=== PATIENT | female | born 1995 | race Caucasian/White ===

== ENCOUNTER → 2017-12-21 | Outpatient (REF) | payer OTHER | LOC: M LAB REF 08:30 | DX: N30.01 Acute cystitis with hematuria (principal) ==

== ENCOUNTER → 2018-04-04 | Outpatient (REF) | payer OTHER | LOC: M LAB REF 12:24 | DX: N30.01 Acute cystitis with hematuria (principal) ==

== ENCOUNTER → 2018-10-09 | Outpatient (REF) | payer OTHER | LOC: M LAB REF 12:31 | PROVIDERS: ATTEND Physician Assistant | DX: N39.0 Urinary tract infection, site not specified (principal) ==

== ENCOUNTER → 2019-01-11 | Outpatient (REF) | payer OTHER | LOC: M LAB REF 12:11 | PROVIDERS: ATTEND Physician Assistant | DX: R30.0 Dysuria (principal) ==

== ENCOUNTER → 2022-01-13 | Outpatient (CLI) | payer OTHER ==
[2022-01-13 09:54] LABS: BASO % 0.4 % (0.0-1.0); EOS # 0.1 10^3/uL (0.0-0.5); EOS % 1.7 % (0.0-3.0); HEMATOCRIT 42.2 % (36.0-47.0); HEMOGLOBIN 13.8 g/dl (12.0-15.5); LYMPH # 2.8 10^3/uL (1.5-5.0); LYMPH % 33.8 % (24.0-44.0); MEAN CORPUSCULAR HEMOGLOBIN 28.1 pg (27.0-33.0); MEAN CORPUSCULAR HGB CONC 32.7 g/dl (32.0-36.5); MEAN CORPUSCULAR VOLUME 85.9 fl (80.0-96.0); MONO # 0.5 10^3/uL (0.0-0.8); MONO % 6.6 % (2.0-8.0); NEUTROPHILS # 4.7 10^3/uL (1.5-8.5); NEUTROPHILS % 57.4 % (36.0-66.0); PLATELET COUNT, AUTOMATED 345 10^3/uL (150-450); RED BLOOD COUNT 4.91 10^6/uL (4.00-5.40); WHITE BLOOD COUNT 8.1 10^3/uL (4.0-10.0)
[2022-01-13 10:42] LABS: ALBUMIN 4.3 GM/DL (3.2-5.2); ALT/SGPT 44 U/L (12-78); BILIRUBIN,TOTAL 0.3 MG/DL (0.2-1.0); BLOOD UREA NITROGEN 9 MG/DL (7-18); CALCIUM LEVEL 9.2 MG/DL (8.5-10.1); CARBON DIOXIDE LEVEL 26 MEQ/L (21-32); CHLORIDE LEVEL 106 MEQ/L (98-107); CHOLESTEROL LEVEL 152 MG/DL (<200); CHOLESTEROL RISK RATIO 2.763 (<5); FREE T4 1.05 NG/DL (0.76-1.46); GLOMERULAR FILTRATION RATE > 60.0 (>60); GLUCOSE, FASTING 91 MG/DL (70-100); HDL CHOLESTEROL 55 MG/DL (>40); LDL CHOLESTEROL 76 MG/DL (<100); NON-HDL-C 97 MG/DL; POTASSIUM SERUM 4.4 MEQ/L (3.5-5.1); SODIUM LEVEL 138 MEQ/L (136-145); TOTAL PROTEIN 7.7 GM/DL (6.4-8.2); TRIGLYCERIDES LEVEL 107 MG/DL (<150)
[2022-01-13 10:44] LABS: HEMOGLOBIN A1c 5.1 %
[2022-01-14 20:07] LABS: TESTOSTERONE FREE (DIRECT) 1.4 pg/mL (0.0-4.2)
== END ==
LOC: M WUC 08:10
PROVIDERS: ATTEND Nurse Practitioner Family
DX: Z00.00 Encounter for general adult medical examination without abnormal findings (principal); G47.00 Insomnia, unspecified; L70.0 Acne vulgaris

== ENCOUNTER → 2023-04-27 | Outpatient (CLI) | payer OTHER | LOC: M WHC 11:56 | PROVIDERS: ATTEND Registered Nurse | DX: R10.813 Right lower quadrant abdominal tenderness (principal) ==

== ENCOUNTER 2023-10-10 07:19 | Day surgery (SDC) | payer OTHER ==
[~2023-10-10] VITALS: Ht 167.6 cm; Wt 84.1 kg
[2023-10-10] MEDS: NS 1,000 ML IV ONE (07:38)
[2023-10-10] MEDS ORDERED: propofoL 200 MG/20 ML VIAL As Ordered ONE (08:18)
[2023-10-10] MEDS ORDERED: LIDOCAINE 2% 100MG/5ML SDV (FOR ANES.) As Ordered ONE (08:18)
[2023-10-10 09:04] VITALS: TEMP 97.3
[2023-10-10 09:25] VITALS: BP 112/62; O2SAT 100
== END 2023-10-10 09:32 | disposition home or self-care (01) ==
LOC: M OPP 07:19
PROVIDERS: ATTEND Internal Medicine Gastroenterology
DX: R19.4 Change in bowel habit (principal); Z80.0 Family history of malignant neoplasm of digestive organs